=== PATIENT | female | born 1980 | race African-American/Black ===

== ENCOUNTER 2017-07-17 20:45 | Emergency (ER) | payer OTHER ==
[~2017-07-17] VITALS: Ht 152.4 cm; Wt 56.7 kg
[2017-07-17 21:00] VITALS: BP 164/80
[2017-07-17] MEDS ORDERED: TDAP [DIPH/PERTUSSIS/TET] 0.5 ML VIAL IM ONE ×2 (21:12→21:30)
[2017-07-17] MEDS ORDERED: LIDOCAINE MPF 1%-EPI 1:200,000 30 ML VIAL IJ ONE (21:13)
[2017-07-17] MEDS ORDERED: LIDOCAINE 1%-EPI 1:100,000 50 ML VIAL IJ ONE (21:30)
[2017-07-17] MEDS ORDERED: IBUPROFEN 600 MG TABLET PO ONE (22:30)
--- NOTE | 2017-07-17 22:31 | NUR ---
[employer] Marsii sutured laceration. 6 stiches noted. intact, clean and dry. dressing on. Patient discharged to home in stable condition. Written and verbal after care instructions given. Patient verbalizes understanding of instruction. Patient is ambulatory with steady gait, no further complaints.
== END 2017-07-17 22:34 | disposition home or self-care (01) ==
LOC: ER 20:47
DX: S61.512A Laceration without foreign body of left wrist, initial encounter (principal); I10 Essential (primary) hypertension; W45.8XXA Other foreign body or object entering through skin, initial encounter; Y93.89 Activity, other specified; Y92.89 Other specified places as the place of occurrence of the external cause; Y99.8 Other external cause status
CPT/HCPCS: 73100-TC; 90715; A4606; A6402; J3490; Z7610

== ENCOUNTER 2017-07-26 17:02 | Emergency (ER) | payer OTHER ==
[~2017-07-26] VITALS: Ht 167.6 cm; Wt 54.4 kg
[2017-07-26 17:23] VITALS: BP 134/77
== END 2017-07-26 17:34 | disposition home or self-care (01) ==
LOC: ER 17:05
DX: S61.512D Laceration without foreign body of left wrist, subsequent encounter (principal); I10 Essential (primary) hypertension
CPT/HCPCS: A4606; Z7502; Z7610